=== PATIENT | female | born 1960 | race Caucasian/White ===

== ENCOUNTER 2017-01-01 11:06 | Inpatient (IN) | payer OTHER ==
[~2017-01-01] VITALS: Ht 160 cm; Wt 83.9 kg
--- NOTE | ~2017-01-01 | EKG ---
[address] [address] ELECTROCARDIOGRAM REPORT Name: MEERAAMIRA Teresa Room #: 401-I ADM IN .R.#: [id number] Admission: 01/01/17 Attend Phys: Lluvia Bernard Discharge: Date of : 56 Report #: [id number] THIS REPORT FOR: //name// [facility] ED Test Date: 2017-01-01 Test Time: 11:12:22 Pat Name: AMIRA ESTES Department: Room: [facility] Gender: F Label Sewer: Eliecer GOMEZ : 1960 Requested By: Kyleigh Hudson Order Number: [id number] MD: Bobby Manzanares Measurements Intervals [place] Rate: 101 P: 48 MA: 150 QRS: 52 QRSD: 93 T: 24 QT: 362 QTc: 470 Interpretive Statements Sinus tachycardia Ventricular trigeminy Compared to ECG 07/15/2011 17:19:44 Ventricular premature complex(es) now present Sinus rhythm no longer present Poor R-wave progression no longer present Electronically Signed On 01-01-2017 22:37:17 CDT by Bobby Manzanares [email or web address] <ELECTRONICALLY SIGNED> By: Bobby Manzanares MD 01/01/17 2237 1112 1112 Bobby Manzanares MD /EPI
--- NOTE | ~2017-01-01 | S ---
[facility] [place] [address] SURGICAL PATH RPT PROCEDURE Name: AMIRA BORDEN Room #: 401-I ADM IN M.R.#: [id number] Admission: 01/01/17 Date of : 56 Discharge: Report #: [id number] Path Case #: [id number] PATHOLOGY REPORT COLLECTION DATE: 01/02/2017 RECEIVED DATE: 01/02/2017 SUBMITTING PHYS: Dr. Lluvia Bernard OTHER PHYS: Dr. Amadou Vargas SPECIMEN(S) RECEIVED: A.Gastric * * * * * * * * * * * * FINAL DIAGNOSIS: "Gastric", biopsy: - Gastric mucosa with mild reactive changes, mild chronic inflammation and focal intestinal type epithelium; no dysplasia seen. (See comment). - Negative H. pylori immunohistochemical stain (block A1); control reacted appropriately. COMMENT: The focal intestinal type epithelium may represent focal intestinal metaplasia in the setting of mild chronic gastritis or a transition to small bowel / duodenal mucosa. Clinical and endoscopic correlation is required. (CLW:kely; 01/05/2017) PATHOLOGIST: Candida Mcfarland M.D. REPORT ELECTRONICALLY SIGNED BY: Candida Mcfarland M.D. DATE/TIME: 01/05/2017 18:43 * * * * * * * * * * * * GROSS PATHOLOGY: Received in formalin labeled "Amira Borden, gastric BX r/o H. pylori," are 3 segments of phelan soft tissue measuring 1.3 x 0.3 x 0.3 cm in aggregate dimensions and ranging from 0.3 to 0.4 cm in maximum dimension. The specimen is submitted entirely in cassette A1. (TSD; 01/02/2017) CLINICAL HISTORY: pre-OP DX: Abdominal pain Post-OP DX: Normal EGD INITIAL CPT CODE(S): [facility] [address] [place] [address] SURGICAL PATH RPT PROCEDURE Name: AMIRA BORDEN Room #: 401-I [facility]#: [id number] Admission: 01/01/17 Date of : 56 Discharge: Report #: [id number] Path Case #: [id number]; [id number], [id number] Professional services performed by [facility] at [facility] [address] [facility] [address], [place] [address] Technical services performed by [facility] at [address] [place] [address], [place] [address]. [facility] [address] [place] [address] PHONE: [phone] DIRECTOR: Jabari Medina M.D. * * * END OF REPORT * * *
--- NOTE | ~2017-01-01 | P ---
[facility] [place] [address] PROCEDURE REPORT Name: AMIRA ESTES Room #: 401-I [facility] IN ..#: [id number] Admission: 01/01/17 Attend Phys: Lluvia Bernard Discharge: 01/06/17 Date of : 56 Report #: [id number] THIS REPORT FOR: //name// CC: Amadou Bernard MD DATE OF SERVICE: 01/02/2017 PROCEDURE PERFORMED: Upper endoscopy with biopsies. HISTORY OF PRESENT ILLNESS: The patient is a 56-year-old female with a history of possible Molina's esophagus, previous cholecystectomy with midepigastric abdominal pain. She had mild elevation in her liver function tests, which have actually increased today. A CT scan of the abdomen and pelvis as well as a chest was performed yesterday. There was no acute abnormalities, a 20% anterior compression deformity of T3 was noted. Ultrasound of the abdomen was performed, which showed a right renal cyst and previous cholecystectomy changes, but otherwise negative. Plan is for EGD. DESCRIPTION OF PROCEDURE: The risks and benefits of the procedure were explained to the patient, those risks including but not limited to bleeding, perforation, the risk of sedation. She understood these risks and gave informed consent. Sedation was given using propofol per anesthesia. Next, using a standard NexSteppen upper endoscope, the scope was placed in the patient's mouth and advanced under direct vision through the esophagus, stomach and into the second portion of the duodenum. The esophagus was normal throughout. The GE junction was normal. There was no evidence of Molina's esophagus. Overall, the gastric mucosa was normal. Because of the patient's pain, biopsies were obtained to rule out the possibility of H. pylori. No evidence of ulcerations or erosions. The pylorus was normal and patent. The duodenal bulb, first and second portion were all normal. The scope was then withdrawn and the procedure terminated. The patient tolerated the procedure well. IMPRESSION: Normal upper endoscopy. RECOMMENDATIONS: 1. Await biopsy results. 2. We will proceed with an MRCP today to rule out the possibility of a common bile duct stone. [facility] [address] [place] [address] PROCEDURE REPORT Name: AMIRA ESTES Room #: 401-I [facility] IN .R.#: [id number] Admission: 01/01/17 Attend Phys: Lluvia Bernard Discharge: 01/06/17 Date of : 56 Report #: [id number] Thank you for allowing me to participate in her care. <ELECTRONICALLY SIGNED> By: Zain Palafox MD 01/07/17 0818 1147 1251 Zain Palafox MD /nt
[~2017-01-01 11:06] MED LIST: ESTROPIPATE PO; FIORICET 50-321 EACH PO; GENTAMICIN SU3 MG/ML OP; NORCO 5-325 TA1 EACH PO; OGEN1.5 MG PO; OMEPRAZOLE 20 M20 M1 PO; TOPAMAX200 MG PO; TOVIAZ8 MG PO; VITAMINC500 PO
[2017-01-01 11:08] VITALS: BP 104/59
[2017-01-01 11:28] LABS: ABSOLUTE NEUTROPHILS 2.9 thou/uL (1.4-8.2); BASOPHILS 1.3 % (0.0-2.0); HEMATOCRIT 38.6 % (37.0-47.0); HEMOGLOBIN 12.6 gm/dL (12.0-15.0); MCH 25.7 pg (26.0-34.0); MCHC 32.6 g/dL (28.0-37.0); MCV 78.8 fL (80.0-100.0); MONOCYTES 8.1 % (1.0-8.0); PLATELET COUNT 228 thou/uL (150-400); POLYS 47.6 % (36.0-66.0); RDW 16.5 % (10.5-14.5)
[2017-01-01 11:44] LABS: APTT 27.6 Seconds (24.5-32.8); PROTIME 9.6 Seconds (9.3-11.4)
[2017-01-01] MEDS ORDERED: ACYCLOVIR 400400 MG PO (11:47)
[2017-01-01] MEDS ORDERED: ADDERALL 10 MG10 MG PO (11:47)
[2017-01-01] MEDS ORDERED: GABAPENTIN600 M1 PO (11:47)
[2017-01-01] MEDS ORDERED: KETOROLAC60 MG/2 ML IM (11:48)
[2017-01-01 11:57] LABS: MANUAL DIFF NO
[2017-01-01 11:58] LABS: CALCIUM 9.9 mg/dL (8.5-10.1); POTASSIUM 3.8 mmol/L (3.5-5.1)
[2017-01-01 12:47] LABS: ABG SAMPLE TYPE ARTERIAL; BE(vivo) -1.9 mmol/L (-2 to +3); HCO3 24.4 mmol/L (22.0-26.0); LACTATE 1.91 mmol/L (0.5-2.0); O2(CT) 17.7 mL/dL (15.0-23.0); O2Hb 94.9 % (92.0-98.0); PCO2 47.6 mmHg (35.0-45.0); PO2 81.3 mmHg (80.0-100.0); STICK SITE L.BRACHIAL; pH 7.328 (7.360-7.450); sO2 95.2 % (92.0-98.0); tCO2 25.9 mmol/L (24.0-30.0)
[2017-01-01 13:35] VITALS: BP 120/52
[2017-01-01 13:50] VITALS: BP 125/67
[2017-01-01] MEDS ORDERED: TOPAMAX 100 MG100 MG PO (14:22)
[2017-01-01 15:05] LABS: ALBUMIN 3.2 g/dL (3.4-5.0); DIRECT BILIRUBIN 0.1 mg/dL (<0.1-0.3); TOTAL BILIRUBIN 0.3 mg/dL (<0.1-1.0); TOTAL PROTEIN 7.2 g/dL (6.4-8.2)
[2017-01-01 20:00] VITALS: BP 121/66
[2017-01-02 04:10] LABS: ALBUMIN 2.8 g/dL (3.4-5.0); TOTAL BILIRUBIN 1.4 mg/dL (<0.1-1.0); TOTAL PROTEIN 6.6 g/dL (6.4-8.2)
[2017-01-02 04:30] VITALS: BP 113/53
[2017-01-02 07:09] VITALS: BP 109/64
[2017-01-02 16:02] VITALS: BP 124/65
[2017-01-02 19:01] VITALS: BP 122/85
[2017-01-03 00:10] LABS: HEPATITIS C VIRUS AB <0.1 (0.0-0.9)
[2017-01-03 03:16] LABS: HEPATITIS C VIRUS AB <0.1 (0.0-0.9)
[2017-01-03 04:06] LABS: IgG 997 mg/dL (700-1600)
[2017-01-03 05:12] VITALS: BP 112/65; BP 91/36
[2017-01-03 06:03] LABS: ABSOLUTE NEUTROPHILS 3.5 thou/uL (1.4-8.2); BASOPHILS 0.6 % (0.0-2.0); EOSINOPHILS 4.7 % (0.0-3.0); HEMATOCRIT 34.9 % (37.0-47.0); HEMOGLOBIN 11.3 gm/dL (12.0-15.0); LYMPHOCYTES 25.7 % (24.0-44.0); MCH 25.5 pg (26.0-34.0); MCHC 32.4 g/dL (28.0-37.0); MCV 78.9 fL (80.0-100.0); MONOCYTES 6.2 % (1.0-8.0); PLATELET COUNT 203 thou/uL (150-400); POLYS 62.8 % (36.0-66.0); RBC 4.43 mil/uL (4.20-5.00); RDW 16.3 % (10.5-14.5); WBC 5.6 thou/uL (4.0-11.0)
[2017-01-03 06:06] LABS: MANUAL DIFF NO
[2017-01-03 06:17] LABS: ALBUMIN 2.5 g/dL (3.4-5.0); CALCIUM 8.5 mg/dL (8.5-10.1); CREATININE 0.8 mg/dL (0.6-1.0); DIRECT BILIRUBIN 0.6 mg/dL (<0.1-0.3); POTASSIUM 3.5 mmol/L (3.5-5.1); TOTAL PROTEIN 6.1 g/dL (6.4-8.2)
[2017-01-03 07:53] VITALS: BP 100/58
[2017-01-03 16:25] VITALS: BP 115/63
[2017-01-03 19:40] VITALS: BP 126/64
[2017-01-04 05:50] VITALS: BP 127/68
[2017-01-04 08:00] VITALS: BP 120/71
[2017-01-04 08:59] LABS: ABSOLUTE NEUTROPHILS 3.6 thou/uL (1.4-8.2); BASOPHILS 0.9 % (0.0-2.0); EOSINOPHILS 5.5 % (0.0-3.0); HEMATOCRIT 33.6 % (37.0-47.0); HEMOGLOBIN 10.8 gm/dL (12.0-15.0); LYMPHOCYTES 28.5 % (24.0-44.0); MCH 25.4 pg (26.0-34.0); MCV 79.5 fL (80.0-100.0); MONOCYTES 7.7 % (1.0-8.0); PLATELET COUNT 195 thou/uL (150-400); POLYS 57.4 % (36.0-66.0); RBC 4.23 mil/uL (4.20-5.00); WBC 6.4 thou/uL (4.0-11.0)
[2017-01-04 09:14] LABS: MANUAL DIFF NO
[2017-01-04 09:14] LABS: ALBUMIN 2.5 g/dL (3.4-5.0); ALKALINE PHOSPHATASE 130 U/L (46-116); AMYLASE 129 U/L (25-115); ANION GAP 9 mmol/L (7-16); BUN 7 mg/dL (7-18); CALCIUM 8.7 mg/dL (8.5-10.1); CHLORIDE 112 mmol/L (98-107); CHOLESTEROL 169 mg/dL (<200); CO2 24 mmol/L (21-32); CREATININE 0.8 mg/dL (0.6-1.0); GLUCOSE 77 mg/dL (74-106); HDL CHOLESTEROL 32 mg/dL (>40); LDL CHOLESTEROL 121 mg/dL (<100); POTASSIUM 3.9 mmol/L (3.5-5.1); SGOT 56 U/L (15-37); SGPT 174 U/L (30-65); SODIUM 145 mmol/L (136-145); TC:HDL 5.3 Ratio (Not establshd); TOTAL BILIRUBIN 0.5 mg/dL (<0.1-1.0); TRIGLYCERIDE 81 mg/dL (<150); VLDL 16 mg/dL (<40)
[2017-01-04 16:16] VITALS: BP 118/45
[2017-01-04 20:52] VITALS: BP 122/64
[2017-01-05 04:06] VITALS: BP 95/61
[2017-01-05 06:22] LABS: ALBUMIN 2.4 g/dL (3.4-5.0); CALCIUM 9.5 mg/dL (8.5-10.1); CREATININE 0.9 mg/dL (0.6-1.0); DIRECT BILIRUBIN 0.1 mg/dL (<0.1-0.3); POTASSIUM 3.8 mmol/L (3.5-5.1); TOTAL BILIRUBIN 0.4 mg/dL (<0.1-1.0)
[2017-01-05 08:47] VITALS: BP 112/57
[2017-01-05 14:09] LABS: CERULOPLASMIN 33.5 mg/dL (19.0-39.0)
[2017-01-05 16:00] VITALS: BP 102/55
[2017-01-05 19:17] VITALS: BP 120/53
[2017-01-06 05:31] VITALS: BP 118/66
[2017-01-06 07:50] LABS: ALBUMIN 2.6 g/dL (3.4-5.0); CALCIUM 8.9 mg/dL (8.5-10.1); CREATININE 0.8 mg/dL (0.6-1.0); POTASSIUM 3.9 mmol/L (3.5-5.1); TOTAL BILIRUBIN 0.4 mg/dL (<0.1-1.0); TOTAL PROTEIN 5.4 g/dL (6.4-8.2)
[2017-01-06 09:00] VITALS: BP 124/66
[2017-01-06 12:19] VITALS: BP 124/66
[2017-01-06] MEDS ORDERED: HYDROCODONE-AP1 EAC6 PO (16:01)
[2017-01-06] MEDS ORDERED: ACTIGALL300 MG PO (16:02)
== END 2017-01-06 16:00 | disposition home or self-care (01) | DRG 438 ==
LOC: ER 11:06 → 4N 12:41 → EROBS 12:41 → 4N 13:35 → ENTRNSPT 01-06 16:06
PROVIDERS: Emergency Medicine; Hospitalist; Internal Medicine Gastroenterology; Nurse Practitioner
PROC: 0DB68ZX Excision of Stomach, Via Natural or Artificial Opening Endoscopic, Diagnostic (ICD-10-PCS; principal; 2017-01-02)
DX: K85.90 Acute pancreatitis without necrosis or infection, unspecified (principal); E43 Unspecified severe protein-calorie malnutrition; M48.54XA Collapsed vertebra, not elsewhere classified, thoracic region, initial encounter for fracture; K21.0 Gastro-esophageal reflux disease with esophagitis; K44.9 Diaphragmatic hernia without obstruction or gangrene; G43.909 Migraine, unspecified, not intractable, without status migrainosus; Z90.710 Acquired absence of both cervix and uterus; Z90.722 Acquired absence of ovaries, bilateral; Z87.891 Personal history of nicotine dependence; Z90.49 Acquired absence of other specified parts of digestive tract; Z79.899 Other long term (current) drug therapy; Z88.5 Allergy status to narcotic agent; Z68.32 Body mass index [BMI] 32.0-32.9, adult; Z88.6 Allergy status to analgesic agent; Z88.8 Allergy status to other drugs, medicaments and biological substances; Z80.0 Family history of malignant neoplasm of digestive organs
CPT/HCPCS: 10091; 27001; 62110; 62900; 70005

== ENCOUNTER 2017-06-21 09:21 | Inpatient (IN) | payer OTHER ==
[~2017-06-21] VITALS: Ht 160 cm; Wt 81.8 kg
--- NOTE | ~2017-06-21 | 2DMMODE ---
[facility] [address] [place] [address] 2 D/M-MODE ECHOCARDIOGRAM Name: AMIRA ESTES S Room #: 210-P ADM IN ..#: [id number] Admission: 06/21/17 Attend Phys: Carlos Kline MD Discharge: Date of : 56 Date of Service: 06/22/17 1030 Report #: [id number] THIS REPORT FOR: //name// APPROVED REPORT Study performed: 06/22/2017 09:39:59 EXAM: Comprehensive 2D, Doppler, and color-flow Echocardiogram Patient Location: Echo lab Room #: 210 Status: routine BSA: 1.85 HR: 80 bpm BP: 106/78 mmHg Other Information Study Quality: Adequate Indications Syncope 2D Dimensions RVDd: 29.59 mm LVEF(%): 57.84 (>50%) IVSd: 10.01 (7-11mm) LVOT Diam: 17.40 (18-24mm) LVDd: 46.29 mm PWd: 9.77 (7-11mm) Ascending Ao: 29.54 (22-36mm) LVDs: 32.22 (25-40mm) Aortic Root: 28.70 mm IVC: 16.00 mm Farmer's LVEF: 57.84 % Volumes Left Atrial Volume (Systole) Single Plane 4CH: 25.86 mL Single Plane 2CH: 38.82 mL LA ESV Index: 22.00 mL/m2 Aortic Valve AoV Peak Shaquille.: 1.40 m/s AO Peak Gr.: 7.82 mmHg LVOT Max P.97 mmHg LVOT Max V: 1.00 m/s KAVON Vmax: 1.69 cm2 Mitral Valve E/A Ratio: 1.2 MV Decel. Time: 201.13 ms MV E Max Shaquille.: 0.86 m/s [facility] [place] [address] 2 D/M-MODE ECHOCARDIOGRAM Name: MEERAAMIRA Room #: 210-P [facility]#: [id number] Admission: 06/21/17 Attend Phys: Carlos Kline MD Discharge: Date of : 56 Date of Service: 06/22/17 1030 Report #: [id number] MV A Shaquille.: 0.70 m/s MV PHT: 58.33 ms IVRT: 87.66 ms Pulmonary Valve PV Peak Shaquille.: 1.09 m/s PV Peak Gr.: 4.77 mmHg Pulmonary Vein P Vein S: 0.68 m/s P Vein A: 0.34 m/s P Vein D: 0.50 m/s P Vein A Dur.: 133.8 msec P Vein S/D Ratio: 1.36 Tricuspid Valve TR Peak Shaquille.: 2.18 m/s TR Peak Gr.: 18.93 mmHg PA Pressure: 24.00 mmHg Left Ventricle The left ventricle is normal size. There is normal left ventricular wall thickness. The left ventricular systolic function is normal. The left ventricular ejection fraction is within the normal range. LVEF is 60-65%. The left ventricular diastolic function is normal. Right Ventricle The right ventricle is normal size. The right ventricular systolic function is normal. Atria The left atrium size is normal. The right atrium size is normal. Aortic Valve The aortic valve is normal in structure. No aortic regurgitation is present. There is no aortic valvular stenosis. Mitral Valve The mitral valve is normal in structure. There is no mitral valve regurgitation noted. No evidence of mitral valve stenosis. Tricuspid Valve The tricuspid valve is normal in structure. There is trace tricuspid regurgitation. Estimated PAP 24 mmHg. There is no pulmonary hypertension. Pulmonic Valve The pulmonary valve is normal in structure. [place] [address] 2 D/M-MODE ECHOCARDIOGRAM Name: AMIRA ESTES Room #: [facility] IN [facility]#: [id number] Admission: 06/21/17 Attend Phys: Carlos Kline MD Discharge: Date of : 56 Date of Service: 06/22/17 1030 Report #: [id number] valvular regurgitation. Great Vessels The aortic root is normal in size. IVC is normal in size and collapses >50% with inspiration. Pericardium There is no pericardial effusion. <Conclusion> The left ventricle is normal size. LVEF is 60-65%. The aortic valve is normal in structure. The mitral valve is normal in structure. The tricuspid valve is normal in structure. There is trace tricuspid regurgitation. Estimated PAP 24 mmHg. There is no pulmonary hypertension. There is no pericardial effusion. <ELECTRONICALLY SIGNED> By: aDvid Guzman MD 06/22/17 1030 1030 1030 David Guzman MD /INF
--- NOTE | ~2017-06-21 | EKG ---
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1960 Requested By: Jeffrey Zeng Order Number: [id number] MD: Emmanuel Patel Measurements Intervals [place] Rate: 71 P: 48 SC: 171 QRS: 9 QRSD: 95 T: 7 QT: 415 QTc: 451 Interpretive Statements Sinus rhythm Premature ventricular premature complexes Abnormal R-wave progression, early transition Compared to ECG 06/21/2017 09:41:38 Ventricular premature complex(es) now present Electronically Signed On 06-22-2017 7:44:24 CDT by Emmanuel Paetl [email or web address] <ELECTRONICALLY SIGNED> By: Emmanuel Patel MD, [facility] 06/22/17 0744 1214 1214 Emmanuel Patel MD, [facility] /EPI
--- NOTE | ~2017-06-21 | EEG ---
[facility] [place] [address] ELECTROENCEPHALOGRAM Name: AMIRA ESTES Room #: 210-P [facility] IN M.R.#: [id number] Admission: 06/21/17 Attend Phys: Carlos Kline MD Discharge: 06/22/17 Date of : 56 Report #: [id number] THIS REPORT FOR: //name// CC: Amadou Kline DATE OF SERVICE: 06/22/2017 This patient is being evaluated for syncope. EEG was done by placing the electrodes by standard 10/20 system of electrode placement. Both referential and sequential montages were used for recording. Background activity in this patient's EEG is about 9 Hz and 30 microvolt. The patient became drowsy and that is associated with bilateral slowing and vertex sharp waves. Photic stimulation is unremarkable. Throughout the record, no active epileptiform activity was noticed. IMPRESSION: This patient's EEG is within normal limit. Thank you very much for this referral. <ELECTRONICALLY SIGNED> By: Nate Card MD 06/25/17 1906 1759 56 Nate Card MD /nt
--- NOTE | ~2017-06-21 | EKG ---
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
--- NOTE | ~2017-06-21 | HC ---
[facility] [place] [address] [place] [address] CONSULTATION Name: AMIRA ESTES Room #: 210-P [facility] IN .R.#: [id number] Admission: 06/21/17 Attend Phys: Carlos Kline MD Discharge: 06/22/17 Date of : 56 Report #: [id number] THIS REPORT FOR: //name// CC: Amadou Kline DATE OF SERVICE: 06/22/2017 HISTORY OF PRESENT ILLNESS: This is a 57-year-old female patient who was evaluated by me for any neurological etiology for the patient's passing out spell. I reviewed the records before seeing the patient and talked to the patient's nurse. Because of the situation with Dr. Bernard, I frankly told her that if I do anything she should point out to me right away so that we can try to make her feel comfortable. The patient was seen in the presence of nurses all the time. I initially asked the patient's to go out and in his absence I asked the patient whether she wants the to be there or not and she indicated multiple times that she wants the to be there. So, I got the patient's back in the room and during the interview and examination both and the patient's nurse were there. As I understand, this patient has history of migraine virtually all her adult life. She follows up with Dr. Vera, a neurologist, and has done it for a long time. She is on Topamax as well as Botox shots for migraine. She also takes gabapentin, but she indicates that she takes gabapentin for fibromyalgia. She had this spell and during this spell she basically passed out. She was out, she was breathing, and it is not clear what her pulse and blood pressure was, but it lasted up to 30 minutes according to the . She did not sustain any head injury preceding this. It does not look like there was any tonic-clonic activity and there was not any well-defined postictal period. REVIEW OF SYSTEMS: Positive for multiple problems. She indicates that she has a longstanding history of migraine. Migraine is always on the right side. Trigger factor is weather. Whenever weather changes she gets severe migraine. Stress is also a trigger factor, but not as pronounced as weather is. She also said she had an injury to the neck and had this injury taken care of long time ago. I do not know what the injury was. Dr. Vera is managing that portion also. She does have a history of fibromyalgia and she takes gabapentin for that. I do not have her prior record to see what workup has been done for fibromyalgia. She does give a history of pseudotumor cerebri. She underwent a spinal tap that time and was put on Diamox. Diamox was discontinued because of the side effect and she was watched and she had regular ophthalmological examination since then and there has been no evidence of any recurrence of pseudotumor cerebri. She indicated she lost weight and that helped control the pseudotumor cerebri. She recently had a history of pancreatitis. She also has been on other medication per record, especially tramadol. This was her relevant 14-point review of systems. [address] [address] CONSULTATION Name: AMIRA ESTES Room #: 210-[facility] IN M.R.#: [id number] Admission: 06/21/17 Attend Phys: Carlos Kline MD Discharge: 06/22/17 Date of : 56 Report #: [id number] PAST MEDICAL HISTORY: Positive for migraine, fibromyalgia, pseudotumor cerebri. I do not have any of those records as she sees another neurologist. SOCIAL HISTORY: This patient is . The was here. As mentioned above, the patient wanted her to be there and that procedure was followed. She denies the use of alcohol. PHYSICAL EXAMINATION: The patient's examination indicates she is alert, she is responsive, she can follow simple commands. Her speech, concentration, fund of knowledge and memory is at her baseline. Cranial nerve examination 2-12 looks unremarkable. Her strength, sensation, reflexes and tone look symmetrical. I did make her walk and she is able to walk with reasonable stability. There is no meningeal sign. There is no thyroid mass. Cardiac examination is unremarkable. No respiratory difficulty was noticed. She does not appear to have any edema, cyanosis or jaundice. Her blood pressure is 106/78, respiration is 18, pulse is 69, temperature is 97.7. LABORATORY DATA: Her sodium is 143. She did have a carotid Doppler and that does not appear to be showing any definite abnormality. She had an MRI and showed a little spot on the brain, but that needs to be compared with the MRI she probably has with her neurologist. IMPRESSION: It is unlikely that there is any neurological etiology for the patient's symptoms. It is unlikely that they were seizure because she is on gabapentin and Topamax, both of them have anticonvulsant effect and clinically they do not look like seizure. Similarly, it is unlikely that it is transient ischemic attacks because she really did not have any focality there. I do not believe there has been any recurrence of any pseudotumor cerebri for which she has a diagnosis or any significant spine thing is any different. I think cardiology etiology is most likely. It is possible this patient had a vasovagal spell. Other cardiology etiology needs to be excluded. The patient was discussed with Dr. Kline, the admitting physician, and I suggested cardiology evaluation, especially to look for vasovagal spell or any other cardiac etiology or any other systemic etiology. RECOMMENDATION: 1. To further exclude any neurological etiology, I will suggest that we do an MRA of the head and we will do MRV. 2. I will check an EEG. 3. I will check a sed rate. 4. The patient is complaining of a lot of back pain where spinal tap was attempted, although no focal deficit is there. Before attempting another spinal tap, I will suggest that she gets an appointment to see her rubber goods tester as well as neurologist very soon and probably she should call today to get that appointment as soon as she can get in. [address] [address] CONSULTATION Name: AMIRA ESTES Room #: 210-P [facility] IN ..#: [id number] Admission: 06/21/17 Attend Phys: Carlos Kline MD Discharge: 06/22/17 Date of : 56 Report #: [id number] 5. The emphasis should be to exclude any non-neurological etiology, especially cardiac etiology in this patient and we will defer that evaluation and management to you or any other consultants you would like to consult. Thank you very much for this referral and if you have any question, please feel free to contact me. I discussed all of it with the patient in detail. <ELECTRONICALLY SIGNED> By: Nate Card MD 06/25/17 1355 0954 1113 Nate Card MD /nt
[~2017-06-21 09:21] MED LIST changes: +ACTIGALL300 MG PO; +ACYCLOVIR 400400 MG PO; +ADDERALL 10 MG10 MG PO; +GABAPENTIN600 M1 PO; +HYDROCODONE-AP1 EAC6 PO; +KETOROLAC60 MG/2 ML IM; +TOPAMAX 100 MG100 MG PO
[2017-06-21 09:25] VITALS: BP 110/54
[2017-06-21 10:29] LABS: APTT 25.5 Seconds (24.5-32.8)
[2017-06-21 10:35] LABS: CALCIUM 10.4 mg/dL (8.5-10.1); CREATININE 0.9 mg/dL (0.6-1.0); POTASSIUM 4.2 mmol/L (3.5-5.1)
[2017-06-21 10:41] LABS: ALBUMIN 3.1 g/dL (3.4-5.0); TOTAL BILIRUBIN 0.3 mg/dL (<0.1-1.0); TOTAL PROTEIN 7.3 g/dL (6.4-8.2)
[2017-06-21 10:49] LABS: ABSOLUTE NEUTROPHILS 3.7 thou/uL (1.4-8.2); EOSINOPHILS 3.2 % (0.0-3.0); HEMATOCRIT 40.4 % (37.0-47.0); HEMOGLOBIN 13.1 gm/dL (12.0-15.0); LYMPHOCYTES 33.9 % (24.0-44.0); MCH 26.5 pg (26.0-34.0); MCHC 32.5 g/dL (28.0-37.0); MCV 81.4 fL (80.0-100.0); POLYS 54.9 % (36.0-66.0); RBC 4.96 mil/uL (4.20-5.00); RDW 15.6 % (10.5-14.5); WBC 7.4 thou/uL (4.0-11.0)
[2017-06-21 11:04] LABS: LIPASE 154 U/L (73-393); TROPONIN-I < 0.04 ng/mL (<0.06)
[2017-06-21 11:26] LABS: PLATELET COUNT 236 thou/uL (150-400)
[2017-06-21 12:21] VITALS: BP 113/60
[2017-06-21 13:36] VITALS: BP 109/62
[2017-06-21] MEDS ORDERED: NEURONTIN600 MG PO (15:05)
[2017-06-21] MEDS ORDERED: ACYCLOVIR 400400 MG PO (15:06)
[2017-06-21] MEDS ORDERED: TOPAMAX 100 MG100 MG PO ×2 (15:07)
[2017-06-21 15:12] VITALS: BP 97/66
[2017-06-21 19:13] VITALS: BP 104/55
[2017-06-22 03:40] VITALS: BP 103/63
[2017-06-22 08:00] VITALS: BP 106/78
[2017-06-22 12:00] VITALS: BP 115/67
[2017-06-22 16:00] VITALS: BP 115/67
[2017-06-22 17:28] VITALS: BP 115/67
== END 2017-06-22 19:46 | disposition home or self-care (01) | DRG 312 ==
LOC: ER 09:21 → 2N 11:37 → EROBS 11:37 → 2N 12:59
PROVIDERS: Emergency Medicine
PROC: 009U3ZZ Drainage of Spinal Canal, Percutaneous Approach (ICD-10-PCS; principal; 2017-06-21)
DX: R55 Syncope and collapse (principal); G43.909 Migraine, unspecified, not intractable, without status migrainosus; Z88.6 Allergy status to analgesic agent; Z88.8 Allergy status to other drugs, medicaments and biological substances
CPT/HCPCS: 10081

== ENCOUNTER → 2017-07-21 | Outpatient (CLI) | payer OTHER ==
[~2017-07-21] MED LIST changes: +NEURONTIN600 MG PO
== END ==
LOC: RAD 00:40
DX: Z12.31 Encounter for screening mammogram for malignant neoplasm of breast (principal); M85.80 Other specified disorders of bone density and structure, unspecified site; Z78.0 Asymptomatic menopausal state

== ENCOUNTER 2018-03-15 07:32 | Emergency (ER) | payer OTHER ==
[~2018-03-15] VITALS: Ht 162.6 cm; Wt 90.7 kg
--- NOTE | ~2018-03-15 | EKG ---
[place] [address] [address] [facility] 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 : 1960 Requested By: Peewee Michel Order Number: [id number] MD: Emmanuel Patel Measurements Intervals [place] Rate: 74 P: 43 NE: 142 QRS: 15 QRSD: 96 T: 26 QT: 443 QTc: 492 Interpretive Statements Sinus rhythm Frequent premature ventricular complexes Abnormal R-wave progression, early transition Compared to ECG 06/21/2017 12:14:31 No significant changes Electronically Signed On 03-15-2018 9:03:13 BAIT PAINTER by Emmanuel Patel [email or web address] <ELECTRONICALLY SIGNED> By: Emmanuel Patel MD, [facility] 03/15/18 0903 0756 0756 Emmanuel Patel MD, FAC /EPI
[2018-03-15 07:47] LABS: URINE BILIRUBIN NEGATIVE (Negative); URINE BLOOD 3+ (Negative); URINE CLARITY CLOUDY; URINE COLOR YELLOW; URINE GLUCOSE-RANDOM* NEGATIVE (Negative); URINE KETONES NEGATIVE (Negative); URINE LEUKOCYTES-REFLEX NEGATIVE (Negative); URINE NITRITE-REFLEX NEGATIVE (Negative); URINE PROTEIN (DIPSTICK) NEGATIVE (Negative); URINE SPECIFIC GRAVITY 1.025 (1.005-1.035); URINE UROBILINOGEN 0.2 E.U./dl (0.2-1.0)
[2018-03-15 08:10] LABS: ABSOLUTE NEUTROPHILS 5.3 thou/uL (1.4-8.2); BASOPHILS 0.9 % (0.0-2.0); EOSINOPHILS 1.7 % (0.0-3.0); HEMATOCRIT 43.4 % (37.0-47.0); HEMOGLOBIN 14.4 gm/dL (12.0-15.0); MCH 27.4 pg (26.0-34.0); MCHC 33.1 g/dL (28.0-37.0); MCV 82.8 fL (80.0-100.0); MONOCYTES 5.6 % (1.0-8.0); PLATELET COUNT 224 thou/uL (150-400); POLYS 63.8 % (36.0-66.0); RBC 5.24 mil/uL (4.20-5.00); RDW 16.2 % (10.5-14.5); WBC 8.3 thou/uL (4.0-11.0)
[2018-03-15 08:20] LABS: ANION GAP 8 mmol/L (7-16); BUN 18 mg/dL (7-18); CALCIUM 8.9 mg/dL (8.5-10.1); CHLORIDE 107 mmol/L (98-107); CO2 26 mmol/L (21-32); CREATININE 0.8 mg/dL (0.6-1.0); GLUCOSE 93 mg/dL (74-106); POTASSIUM 3.9 mmol/L (3.5-5.1); SODIUM 141 mmol/L (136-145)
[2018-03-15 08:28] LABS: ALBUMIN 3.4 g/dL (3.4-5.0); LIPASE 165 U/L (73-393); SGOT 16 U/L (15-37); SGPT 22 U/L (30-65); TOTAL BILIRUBIN 0.3 mg/dL (<0.1-1.0); TOTAL PROTEIN 7.9 g/dL (6.4-8.2); TROPONIN-I <0.06 ng/mL (<0.06)
[2018-03-15 08:29] LABS: CASTS None Seen /LPF (None Seen); CRYSTALS None Seen /LPF (None Seen); SQUAMOUS 0-3 Few /LPF (0-3); URINE RBC >20 Many /HPF (0-2)
[2018-03-15 08:30] LABS: URINE WBC-REFLEX 0-5 Rare /HPF (0-5)
[2018-03-15] MEDS ORDERED: ZOFRAN8 MG PO (09:14)
[2018-03-15] MEDS ORDERED: NORCO 5-325 TA1 EACH PO (09:14)
[2018-03-15] MEDS ORDERED: TORADOL 10 MG T10 MG PO (09:14)
[2018-03-15 09:53] VITALS: BP 128/63
[2018-03-15] MEDS ORDERED: CRESTOR10 MG PO (09:56)
[2018-03-15] MEDS ORDERED: AIMOVIG AU70 MG/1 ML SUBQ (09:56)
[2018-03-15] MEDS ORDERED: PLAVIX 75 MG TA75 M1 PO (09:56)
[2018-03-15] MEDS ORDERED: ESTRADIOL 1 MG T1 M1 PO (09:57)
== END 2018-03-15 10:00 | disposition home or self-care (01) ==
LOC: ER 07:32
PROVIDERS: Emergency Medicine
DX: N20.1 Calculus of ureter (principal); D64.9 Anemia, unspecified; N18.9 Chronic kidney disease, unspecified; R31.9 Hematuria, unspecified; M79.7 Fibromyalgia; G43.909 Migraine, unspecified, not intractable, without status migrainosus; Z88.6 Allergy status to analgesic agent; Z88.5 Allergy status to narcotic agent; Z88.8 Allergy status to other drugs, medicaments and biological substances; Z90.49 Acquired absence of other specified parts of digestive tract; Z90.710 Acquired absence of both cervix and uterus; Z98.890 Other specified postprocedural states; Z87.442 Personal history of urinary calculi

== ENCOUNTER → 2018-08-12 | Outpatient (CLI) | payer OTHER ==
[~2018-08-12] MED LIST changes: +AIMOVIG AU70 MG/1 ML SUBQ; +CRESTOR10 MG PO; +ESTRADIOL 1 MG T1 M1 PO; +PLAVIX 75 MG TA75 M1 PO; +TORADOL 10 MG T10 MG PO; +ZOFRAN8 MG PO
== END ==
LOC: RAD 09:03 → SPEECH 09:03 → RAD 15:32
DX: R13.12 Dysphagia, oropharyngeal phase (principal); M54.2 Cervicalgia

== ENCOUNTER → 2018-09-23 | Outpatient (CLI) | payer OTHER | LOC: RAD 11:18 | DX: N20.0 Calculus of kidney (principal); Z90.49 Acquired absence of other specified parts of digestive tract ==

== ENCOUNTER → 2018-10-21 | Outpatient (CLI) | payer OTHER | LOC: RAD 11:49 | DX: Z12.31 Encounter for screening mammogram for malignant neoplasm of breast (principal) ==

== ENCOUNTER 2018-11-05 12:50 | Emergency (ER) | payer OTHER ==
[~2018-11-05] VITALS: Ht 160 cm; Wt 82.6 kg
[2018-11-05 13:34] LABS: URINE BILIRUBIN NEGATIVE (Negative); URINE BLOOD TRACE (Negative); URINE CLARITY CLEAR; URINE COLOR YELLOW; URINE GLUCOSE-RANDOM* NEGATIVE (Negative); URINE KETONES NEGATIVE (Negative); URINE LEUKOCYTES-REFLEX NEGATIVE (Negative); URINE NITRITE-REFLEX NEGATIVE (Negative); URINE PROTEIN (DIPSTICK) NEGATIVE (Negative); URINE SPECIFIC GRAVITY <= 1.005 (1.005-1.035); URINE UROBILINOGEN 0.2 E.U./dl (0.2-1.0)
[2018-11-05 14:28] LABS: ABSOLUTE NEUTROPHILS 3.9 thou/uL (1.4-8.2); BASOPHILS 0.6 % (0.0-2.0); EOSINOPHILS 2.3 % (0.0-3.0); HEMATOCRIT 39.4 % (37.0-47.0); HEMOGLOBIN 12.9 gm/dL (12.0-15.0); LYMPHOCYTES 27.5 % (24.0-44.0); MCH 27.1 pg (26.0-34.0); MCHC 32.7 g/dL (28.0-37.0); MCV 82.8 fL (80.0-100.0); MONOCYTES 6.6 % (1.0-8.0); PLATELET COUNT 230 thou/uL (150-400); RBC 4.76 mil/uL (4.20-5.00); RDW 15.6 % (10.5-14.5); WBC 6.2 thou/uL (4.0-11.0)
[2018-11-05 14:37] LABS: CALCIUM 9.2 mg/dL (8.5-10.1); CREATININE 0.9 mg/dL (0.6-1.0); POTASSIUM 3.8 mmol/L (3.5-5.1)
[2018-11-05] MEDS ORDERED: ZOFRAN ODT4 MG PO (15:59)
[2018-11-05] MEDS ORDERED: TRAMADOL 50 MG50 MG PO (15:59)
[2018-11-05 16:20] VITALS: BP 117/56
== END 2018-11-05 16:20 | disposition home or self-care (01) ==
LOC: ER 12:50
PROVIDERS: Nurse Practitioner Family
DX: N20.0 Calculus of kidney (principal); Z87.442 Personal history of urinary calculi; Z88.6 Allergy status to analgesic agent; Z88.5 Allergy status to narcotic agent; Z91.018 Allergy to other foods; Z88.1 Allergy status to other antibiotic agents

== ENCOUNTER → 2019-09-01 | Outpatient (CLI) | payer OTHER ==
[~2019-09-01] MED LIST changes: +TRAMADOL 50 MG50 MG PO; +ZOFRAN ODT4 MG PO
== END ==
LOC: SJCVCIMAG 13:30
DX: R06.00 Dyspnea, unspecified (principal); R00.2 Palpitations; I49.3 Ventricular premature depolarization; I65.29 Occlusion and stenosis of unspecified carotid artery

== ENCOUNTER → 2019-09-07 | Outpatient (CLI) | payer OTHER ==
[2019-09-07 10:42] VITALS: BP 126/69
--- NOTE | 2019-09-08 07:29 | CATHLAB ---
[facility] [place] [address] [place] [address] INVASIVE PROCEDURE REPORT Name: AMIRA ESTES Room #: REG Altagracia Larissa#: [id number] Admission: 09/07/19 Attend Phys: Emmanuel Patel MD, Discharge: Date of : 56 Report #: [id number] THIS REPORT FOR: cc: Amadou Vargas,Emmanuel Pro MD [facility] ~ CC: Emmanuel Vargas DATE OF SERVICE: 09/07/2019 PROCEDURE: Reveal LINQ loop recorder implantation. INDICATIONS: Syncope, paroxysmal atrial fibrillation. DESCRIPTION OF PROCEDURE: The potential benefits and risks of the procedure were discussed at length with the patient, who understood. Full written and informed consent was obtained. The left anterior chest was prepped and draped in a sterile fashion. 1% Xylocaine was used as local anesthetic. A small, less than 1 cm incision was made over the fourth intercostal space. A Reveal LINQ LNQ11 device was placed, serial #[id number]. A single bioabsorbable stitch was placed followed by a dressing. She tolerated the procedure well. Thresholds and device were working according to specifications. SUMMARY: Successful implantation of a Standing Cloud Reveal LINQ loop recorder. <ELECTRONICALLY SIGNED> By: Emmanuel Patel MD, [facility] 09/08/19 0729 0935 1158 Emmanuel Patel MD, FACC /nt
== END | disposition home or self-care (01) ==
LOC: CATH 09-06 14:10
PROVIDERS: ATTEND Internal Medicine
DX: I48.0 Paroxysmal atrial fibrillation (principal); R55 Syncope and collapse; D64.9 Anemia, unspecified; N18.9 Chronic kidney disease, unspecified; Z98.890 Other specified postprocedural states; Z79.899 Other long term (current) drug therapy; Z87.442 Personal history of urinary calculi; Z79.01 Long term (current) use of anticoagulants

== ENCOUNTER → 2020-09-12 | Outpatient (CLI) | payer OTHER | LOC: CAT 12:12 | PROVIDERS: ATTEND Internal Medicine Cardiovascular Disease | DX: Z13.6 Encounter for screening for cardiovascular disorders (principal); E78.00 Pure hypercholesterolemia, unspecified; I25.10 Atherosclerotic heart disease of native coronary artery without angina pectoris ==

== ENCOUNTER 2020-11-27 10:33 | Emergency (ER) | payer BC, OTHER ==
[~2020-11-27] VITALS: Ht 160 cm; Wt 81.7 kg
[2020-11-27 11:10] LABS: HEMATOCRIT 34.2 % (37.0-47.0); HEMOGLOBIN 10.7 gm/dL (12.0-15.0); MCH 26.6 pg (26.0-34.0); MCHC 31.3 g/dL (28.0-37.0); MCV 84.8 fL (80.0-100.0); RBC 4.03 mil/uL (4.20-5.00); WBC 7.2 thou/uL (4.0-11.0)
[2020-11-27 11:23] LABS: CREATININE 1.3 mg/dL (0.6-1.0); POTASSIUM 4.3 mmol/L (3.5-5.1)
[2020-11-27 11:29] LABS: ALBUMIN 2.9 g/dL (3.4-5.0); TOTAL BILIRUBIN 0.2 mg/dL (0.2-1.0); TOTAL PROTEIN 7.1 g/dL (6.4-8.2)
[2020-11-27 12:14] LABS: URINE BILIRUBIN NEGATIVE (Negative); URINE BLOOD NEGATIVE (Negative); URINE CLARITY CLEAR; URINE COLOR YELLOW; URINE GLUCOSE-RANDOM* NEGATIVE (Negative); URINE KETONES NEGATIVE (Negative); URINE LEUKOCYTES-REFLEX NEGATIVE (Negative); URINE NITRITE-REFLEX NEGATIVE (Negative); URINE PROTEIN (DIPSTICK) NEGATIVE (Negative); URINE UROBILINOGEN 0.2 E.U./dl (0.2-1.0)
[2020-11-27] MEDS ORDERED: ULTRAM 50MG TAB50 MG PO (12:26)
[2020-11-27 12:45] VITALS: BP 120/52
== END 2020-11-27 12:45 | disposition home or self-care (01) ==
LOC: ER 10:33
PROVIDERS: Nurse Practitioner Family
DX: S00.83XA Contusion of other part of head, initial encounter (principal); S70.11XA Contusion of right thigh, initial encounter; W08.XXXA Fall from other furniture, initial encounter; Y93.89 Activity, other specified; Y92.89 Other specified places as the place of occurrence of the external cause; Y99.8 Other external cause status